=== PATIENT | female | born 1950 | race Caucasian/White ===

== ENCOUNTER 2019-07-29 14:45 | Emergency (ER) | payer MEDICARE ==
[~2019-07-29] VITALS: Ht 167.6 cm; Wt 83.9 kg
== END 2019-07-29 17:00 | disposition short-term general hospital (02) ==
LOC: ED 14:45
DX: S82.831A Other fracture of upper and lower end of right fibula, initial encounter for closed fracture (principal); Z91.048 Other nonmedicinal substance allergy status; W01.0XXA Fall on same level from slipping, tripping and stumbling without subsequent striking against object, initial encounter; Y93.89 Activity, other specified; Y92.098 Other place in other non-institutional residence as the place of occurrence of the external cause; Y99.8 Other external cause status